=== PATIENT | male | born 1985 | race Asian ===

== ENCOUNTER 2024-05-05 13:17 | Emergency (ER) | payer BC ==
[~2024-05-05] VITALS: Ht 172.7 cm; Wt 102.0 kg
[2024-05-05 13:25] VITALS: BP 153/95; PULSE 86; RESP 18; O2SAT 97; O2SAT 98
[2024-05-05 15:23] VITALS: TEMP 97.9
[2024-05-05] MEDS: ACETAMINOPHEN 325MG TABLET PO ONE (15:23)
== END 2024-05-05 15:28 | disposition home or self-care (01) ==
LOC: ER 13:17
DX: S00.03XA Contusion of scalp, initial encounter (principal); F32.A Depression, unspecified; W10.9XXA Fall (on) (from) unspecified stairs and steps, initial encounter; Y93.89 Activity, other specified; Y92.89 Other specified places as the place of occurrence of the external cause; Y99.8 Other external cause status
CPT/HCPCS: 99284